=== PATIENT | male | born 1965 | race Caucasian/White ===

== ENCOUNTER 2021-01-21 13:41 | Outpatient (CLI) | payer BC, SELFPAY ==
--- NOTE | ~2021-01-21 | XR_ITS ---
EXAMINATION: XR lg joint inject/aspiration DATE: 01/21/2021 14:39 INDICATION: Left frozen shoulder TECHNIQUE: A time-out was performed to verify the patient's name, date of , and procedure to b e performed. The procedure including the risks, benefits, and alternatives was discussed with the pat iealexander. Risks discussed included bleeding and infection. The patient understood the risks and agreed to proceed. The skin overlying the rotator cuff interval of the left glenohumeral joint was prepped an d draped in usual sterile fashion. Anesthetic was administered with 1% lidocaine subcutaneously. A 22 G needle was advanced under fluoroscopic guidance into the joint. Injection of 1 mL of Omnipaque 240 confirmed intra-articular position of the needle. Subsequently, injectate consisting of 5 mL of a 4:1 mixture of 1% lidocaine: 80 mg/mL Depo-Medrol for a total dosage of 80 mg Depo-Medrol was insti lled. Washout of contrast was seen confirming intra-articular administration. The needle was removed and the entry site was cleaned and dressed. There were no immediate complications. Fluoroscopy expos ure time was 0.1 minutes. The total number of images was 2. FINDINGS: Real-time fluoroscopy demonstrates the needle in the left glenohumeral joint. Patient's thomas n prior to procedure:1/10. Patient's pain following the procedure: 0/10. IMPRESSION: 1. Successful left glenohumeral joint injection of local anesthetic and steroid with decrease in the patient's presenting pain. Reviewed, dictated and finalized at location A.
== END 2021-01-21 13:42 | disposition home or self-care (01) ==
PROVIDERS: PCP Internal Medicine; Visit Provider Orthopaedic Surgery
DX: M75.02 Adhesive capsulitis of left shoulder (principal)
CPT/HCPCS: 20610; J1040

== ENCOUNTER 2021-07-13 12:21 | Outpatient (CLI) | payer BC, SELFPAY ==
--- NOTE | ~2021-07-13 | MR_ITS ---
EXAMINATION: MR hip RT w con DATE: 07/13/2021 14:30 INDICATION: Right hip pain TECHNIQUE: Magnetic resonance (MR) arthrogram of the right hip was performed following intra-articula r gadolinium contrast injection and without intravenous contrast. Details of the hip joint injection have been dictated separately. Sequences included small field of view of the right hip with axial and sagittal T1-weighted FS SE and T2-weighted FS FSE and coronal T1-weighted SE and T2-weighted FS FSE . Additional T1-weighted FGRE images in a radial pattern oriented orthogonal to the acetabular rim we re obtained for evaluation of the labrum. COMPARISON: None. FINDINGS: Bones/labrum/cartilage: Alignment is normal. No fracture, avascular necrosis or pathologic marrow replacing process. Right a cetabular labrum is normal. Mild right hip osteoarthritis with mild partial-thickness cartilage loss with smooth chondral surface along the posterior aspect of the femoral head and at the anterior and p osterior margins of the acetabulum. Severe lower lumbar spondylosis with severe right-sided disc heig ht loss with right-sided degenerative endplate changes at L4-L5 and 3-4 mm right lateral listhesis L3 on L4 with additional severe disc height loss and degenerative endplate changes. Moderate to severe bilateral lower lumbar facet osteoarthritis. On the mechanical inspector localizer sagittal image there heart disc b ulges with mild central canal stenosis at L2-L3, L3-L4 and L4-L5. Fluid: Physiologic amount fluid in the left hip joint. No synovitis or loose osteochondral bodies noted with in the injected intra-articular contrast of the right hip joint. No bursitis or other abnormal fluid collections. Soft tissues: Normal and symmetric muscle bulk and signal in the pelvis and visualized proximal thighs. The bilater al iliopsoas, gluteal and proximal hamstring tendons are normal. Prostatomegaly measuring 4.3 x 4.1 c m. Mild trabeculation along the mucosal surface of the otherwise normal bladder. No pathologically enlarged pelvic/inguinal lymphadenopathy. IMPRESSION: 1. Very mild osteoarthritis at the right hip. No labral tear or acute osseous abnormality. 2. Severe lower lumbar spondylosis. 3. Mild likely mucosal surface of the latter likely related to chronic outlet obstruction from the en larged prostate. Reviewed, dictated and finalized at location A. IC HEALTH PROGRAM MANAGER IMPRESSION: 1. Very mild osteoarthritis at the right hip. No labral tear or acute osseous a bnormality. 2. Severe lower lumbar spondylosis. 3. Mild likely mucosal surface of the latter likely related to chronic outlet o bstruction from the enlarged prostate.
--- NOTE | ~2021-07-13 | XR_ITS ---
EXAMINATION: XR fl inj hip RT for MR/CT DATE: 07/13/2021 13:40 INDICATION: Right hip pain TECHNIQUE: A time-out was performed to verify the patient's name, date of , and procedure to b e performed. The procedure including the risks, benefits, and alternatives was discussed with the pat ient. Risks discussed included bleeding and infection. The patient understood the risks and agreed to proceed. The skin overlying the right hip joint was prepped and draped in usual sterile fashion. A nesthetic was administered with 1% lidocaine subcutaneously. A 22 G needle was advanced under fluoro scopic guidance into the joint. Injection of 1 mL of Omnipaque 240 confirmed intra-articular positio n of the needle. Subsequently, injectate consisting of 12 mL of 2:1:1 mixture of sterile saline:Omni paque 240:1% lidocaine mixed 200:1 with 529 mg/mL Multihance gadolinium contrast was injected with in tra-articular administration confirmed with intermittent fluoroscopy. The needle was removed and the entry site was cleaned and dressed. There were no immediate complications. Fluoroscopy exposure time was 0.2 minutes. The total number of images was 8. FINDINGS: Real-time fluoroscopy demonstrates the needle and contrast in the right hip joint. . IMPRESSION: 1. Successful right hip joint injection of dilute gadolinium contrast mixture for subsequent MRI arth rogram which will be dictated separately. Reviewed, dictated and finalized at location A. CAR MAINTENANCE MECHANIC IMPRESSION: 1. Successful right hip joint injection of dilute gadolinium contrast mixture f or subsequent MRI arthrogram which will be dictated separately.
== END 2021-07-13 12:22 | disposition home or self-care (01) ==
PROVIDERS: PCP Internal Medicine; Visit Provider Orthopaedic Surgery
DX: M16.11 Unilateral primary osteoarthritis, right hip (principal); M47.896 Other spondylosis, lumbar region
CPT/HCPCS: 20610; 73722; 77002; A9577

== ENCOUNTER 2021-08-12 12:44 | Outpatient (CLI) | payer BC, SELFPAY ==
--- NOTE | ~2021-08-12 | MR_ITS ---
EXAMINATION: MR lumbar spine wo con EXAM DATE: 08/12/2021 13:24 INDICATION: Pain In Rt Hip M25.551. Low back pain, right hip pain. TECHNIQUE: Multi-sequential, multiplanar MR images of the lumbar spine were obtained without contrast . Sagittal T1, T2, T2 fat saturation images. Axial T2 weighted images. There is no prior study for comparison. FINDINGS: There are mild subacute compression fractures at the L4-5 endplates right side. Moderate to severe disc disease at this level and the level above. The conus medullaris terminates at the L1 lev el and has normal signal intensity and morphology. There is 3 mm retrolisthesis L3 on L4 and L4 on L 5. Paraspinal soft tissue is unremarkable. Level by level evaluation: T12-L1: Disc does not extend beyond the endplate margin. Facet arthropathy: Mild. Neural foraminal stenosis: No stenosis. Central canal stenosis: No stenosis. L1-L2: There is a minimal diffuse disc bulge. Facet arthropathy: Mild to moderate. Neural foraminal stenosis: No stenosis. Central canal stenosis: No stenosis. L2-L3: There is a mild to moderate diffuse disc bulge. Facet arthropathy: Moderate. Neural foraminal stenosis: Mild to moderate left, mild right. Central canal stenosis: Mild. L3-L4: There is a moderate diffuse disc bulge. Facet arthropathy: Moderate. Neural foraminal stenosis: Moderate left, mild right. Central canal stenosis: Mild to moderate. L4-L5: There is a moderate to large diffuse disc bulge asymmetric to the right Facet arthropathy: Moderate to severe. Neural foraminal stenosis: Moderate to severe right, moderate left. Central canal stenosis: Mild to moderate. L5-S1: Disc does not extend beyond the endplate margin. Facet arthropathy: Mild. Neural foraminal stenosis: No stenosis. Central canal stenosis: No stenosis. IMPRESSION: 1. L4-5 endplate mild subacute appearing compression fractures. 2. L4-5 moderate to severe right neural foraminal stenosis. 3. Less spondylosis other levels. Reviewed, dictated and finalized at location G.
== END 2021-08-12 12:45 | disposition home or self-care (01) ==
LOC: ANHIMG 12:47
PROVIDERS: PCP Internal Medicine; Visit Provider Orthopaedic Surgery
DX: M25.551 Pain in right hip (principal); M47.896 Other spondylosis, lumbar region
CPT/HCPCS: 72148